=== PATIENT | female | born 1935 | race Caucasian/White ===

== ENCOUNTER 2018-12-11 16:50 | Emergency (ER) | payer MEDICARE, OTHER ==
[~2018-12-11] VITALS: Ht 157.5 cm; Wt 63.6 kg
[~2018-12-11 16:50] MED LIST: ALEN5TAB PO; GLUC500T12 PO; MELO-107 PO; METO25TA6 PO
[2018-12-11] MEDS ORDERED: FURO20 PO (17:14)
[2018-12-11] MEDS ORDERED: PRIM50 PO (17:14)
[2018-12-11] MEDS ORDERED: TOPI25 PO (17:14)
[2018-12-11] MEDS ORDERED: OLAN2.5T3 PO (17:14)
[2018-12-11] MEDS ORDERED: POTA25TA7 PO (17:14)
[2018-12-11] MEDS ORDERED: METO25XL PO (17:14)
[2018-12-11] MEDS ORDERED: DOCU250C91 PO (17:14)
[2018-12-11] MEDS ORDERED: FERR-89 PO (17:14)
[2018-12-11] MEDS ORDERED: BUSP10TA23 PO (17:14)
[2018-12-11] MEDS ORDERED: DONE10TA8 PO (17:14)
[2018-12-11] MEDS ORDERED: ASCO500 PO (17:14)
[2018-12-11] MEDS ORDERED: LIDODERM PATCH TD (17:14)
[2018-12-11] MEDS ORDERED: AMLO-511 PO (17:14)
[2018-12-11] MEDS ORDERED: CHOL50004 PO (17:14)
[2018-12-11] MEDS ORDERED: AMIT25TA9 PO (17:14)
[2018-12-11 17:37] LABS: BASOPHILS % (AUTO) 0.9 % (0.0-2.0); EOSINOPHILS % (AUTO) 2.3 % (1.0-6.0); HEMATOCRIT 35.3 % (36-46); HEMOGLOBIN 11.4 g/dL (12.0-16.0); LYMPHOCYTES # (AUTO) 1.2 K/uL (1.0-4.8); LYMPHOCYTES % (AUTO) 21.1 % (22.0-44.0); MEAN CORPUSCULAR HEMOGLOBIN 26.9 pg (26.0-34.0); MEAN CORPUSCULAR HGB CONC 32.3 G/dL (31.0-37.0); MEAN CORPUSCULAR VOLUME 84 fL (80-100); MONOCYTES # (AUTO) 0.5 K/uL (0.1-1.0); MONOCYTES % (AUTO) 8.7 % (2.0-9.0); NEUTROPHILS # (AUTO) 3.9 K/uL (1.8-7.7); PLATELET COUNT (AUTO) 265 K/uL (150-450); RED BLOOD CELL COUNT(AUTO) 4.23 MIL/uL (4.00-5.20); RED CELL DISTRIBUTION WIDTH 15.5 % (11.5-14.5)
[2018-12-11 17:51] LABS: ANION GAP 10 mmol/L (8-16); CALCIUM, TOTAL 9.2 mg/dL (8.8-10.5); CARBON DIOXIDE 24 mmol/L (22-29); CHLORIDE 104 mmol/L (98-107); CREATININE 0.82 mg/dL (0.60-1.30); GLUCOSE,RANDOM 98 mg/dL (70-110); POTASSIUM 3.8 mmol/L (3.5-5.1); SODIUM SERUM 138 mmol/L (136-145); UREA NITROGEN, BLOOD 25 mg/dL (7-18)
[2018-12-11 17:54] LABS: GLOMERULAR FILTR. RATE CALC > 60 mL/min (>60)
[2018-12-11 17:58] LABS: ALANINE AMINOTRANSFERASE 20 U/L (12-78); ALBUMIN 3.1 g/dL (3.4-5.0); ALKALINE PHOSPHATASE 90 U/L (46-116); ASPARTATE AMINOTRANSFERASE 20 U/L (15-37); BILIRUBIN,TOTAL 0.2 mg/dL (0.1-1.0); TOTAL PROTEIN, SERUM 6.4 g/dL (6.4-8.2)
[2018-12-11 18:36] LABS: APPEARANCE,URINE CLEAR (CLEAR); BILIRUBIN,URINE NEGATIVE (NEGATIVE); GLUCOSE, URINE (UA) NEGATIVE (NEGATIVE); KETONES,URINE NEGATIVE (NEGATIVE); LEUKOCYTE ESTERASE ,URINE NEGATIVE (NEGATIVE); NITRATE,URINE NEGATIVE (NEGATIVE); OCCULT BLOOD,URINE TRACE (NEGATIVE); PROTEIN,URINE NEGATIVE (NEGATIVE); UROBILINOGEN,URINE 0.2 mg/dL (<=1.0)
[2018-12-11 19:28] LABS: BACTERIA,URINE None Seen /HPF (None Seen); RBC,URINE 0-2 /HPF (0-2); WBC,URINE None Seen /HPF (0-5)
[2018-12-11 20:46] VITALS: BP 150/77
[2018-12-13] MEDS ORDERED: SLOWK8 PO (18:14)
[2018-12-13] MEDS ORDERED: LIDO700A15 TD (18:14)
== END 2018-12-11 21:28 | disposition home or self-care (01) ==
LOC: EMS 16:52
DX: M17.0 Bilateral primary osteoarthritis of knee (principal); E44.0 Moderate protein-calorie malnutrition; G20 Parkinson's disease; F02.80 Dementia in other diseases classified elsewhere, unspecified severity, without behavioral disturbance, psychotic disturbance, mood disturbance, and anxiety; F41.9 Anxiety disorder, unspecified; I10 Essential (primary) hypertension; G89.29 Other chronic pain; Z68.25 Body mass index [BMI] 25.0-25.9, adult; Z79.899 Other long term (current) drug therapy; W07.XXXA Fall from chair, initial encounter; Y93.89 Activity, other specified; Y92.89 Other specified places as the place of occurrence of the external cause; Y99.8 Other external cause status
CPT/HCPCS: 93005